=== PATIENT | female | born 1980 | race Caucasian/White ===

== ENCOUNTER → 2019-01-19 10:39 | Outpatient (CLI) | payer OTHER, SELFPAY ==
--- NOTE | 2019-01-19 10:41 | DI.RAD.S_ITS ---
PROCEDURE: XR LUMBAR SPINE 2-3V INDICATIONS: Low back pain TECHNIQUE: 3 views of the lumbar spine were acquired. COMPARISON: [facility], CT, KIDNEY/ URETER/BLADDER, 04/26/2016, 13:34. [facility], MR, L-SPINE WITHOUT CONTRAST, 07/17/2015, 9:25. [facility], CR, L-SPINE 2-3 VIEWS, 06/23/2015, 13:05. FINDINGS: Bones: 5 [id number] vertebrae are present. There is normal bony alignment. No vertebral body compression fractures. No suspicious bony lesions. The disc heights are well-preserved. Lower lumbar spine facet arthropathy is seen. Soft tissues: Overlying bowel gas pattern is normal. No suspicious soft tissue calcifications. Cholecystectomy clips are seen. A right-sided pelvic clip can also be seen. IMPRESSION: Lower lumbar spine facet arthropathy is seen. Cholecystectomy. Dictated by: Bao Gaspar M.D. on 01/19/2019 at 10:20 Approved by: Bao Gaspar M.D. on 01/19/2019 at 10:22
[2019-01-19 13:04] LABS: Hemoglobin A1C% w Est Avg Glu 5.2 % (4.0-6.0)
[2019-01-19 13:17] LABS: TSH w/ Reflex to FT4 2.45 uIU/mL (0.47-4.68)
[2019-01-19 13:46] LABS: Vitamin B12 254 pg/mL (239-931)
[2019-01-19 15:14] LABS: Vitamin D 25 Hydroxy (D3) 22.6 ng/mL (30.0-100.0)
== END ==
PROVIDERS: PCP Family Medicine; Visit Provider Registered Nurse
DX: G62.9 Polyneuropathy, unspecified (principal)
CPT/HCPCS: 36415; 72100; 82306; 82607; 83036; 84443

== ENCOUNTER → 2019-12-15 16:49 | Outpatient (CLI) | payer OTHER, SELFPAY ==
[2019-12-15 18:18] LABS: Influenza A - CEPHEID Flu A NEGATIVE (NEGATIVE); Influenza B - CEPHEID Flu B NEGATIVE (NEGATIVE)
== END ==
PROVIDERS: PCP Family Medicine; Visit Provider Physician Assistant
DX: R68.89 Other general symptoms and signs (principal)
CPT/HCPCS: 87502

== ENCOUNTER → 2021-02-13 07:48 | Outpatient (CLI) | payer OTHER, SELFPAY ==
[2021-02-13] MEDS: COVID-19 VACC #1, MRNA(MOD) 100 MCG/0.5 ML VIAL IM (07:54)
== END ==
PROVIDERS: PCP Family Medicine; Visit Provider Internal Medicine
DX: Z23 Encounter for immunization (principal)
CPT/HCPCS: 0011A; 91301

== ENCOUNTER → 2021-03-13 07:56 | Outpatient (CLI) | payer OTHER, SELFPAY ==
[2021-03-13] MEDS: COVID-19 VACC #2, MRNA(MOD) 100 MCG/0.5 ML VIAL IM (07:59)
== END ==
PROVIDERS: PCP Family Medicine; Visit Provider Internal Medicine
DX: Z23 Encounter for immunization (principal)
CPT/HCPCS: 0012A; 91301

== ENCOUNTER → 2021-08-22 09:09 | Outpatient (CLI) | payer OTHER, SELFPAY ==
[2021-08-22 09:56] LABS: COVID19 -Nasal RAPID Negative (Negative)
== END ==
PROVIDERS: PCP Family Medicine; Visit Provider Physician Assistant
DX: Z20.822 Contact with and (suspected) exposure to COVID-19 (principal)
CPT/HCPCS: 87635

== ENCOUNTER → 2023-01-22 08:33 | Outpatient (CLI) | payer BC, SELFPAY ==
[2023-01-22 09:48] LABS: Add Manual Diff / Slide Review NO; Basophils Absolute Auto 0 /uL (0-100); Basophils Percent Auto 0.5 % (0-2); Eosinophils Absolute Auto 300 /uL (0-450); Eosinophils Percent Auto 4.3 % (2-4); Hematocrit 41.6 % (36-46); Hemoglobin 13.5 g/dL (12.0-16.0); Lymphocytes Absolute Auto 1500 /uL (1100-4500); Mean Corpuscular HGB Conc 32.6 % (30-36); Mean Corpuscular Hemoglobin 28.7 PG (26-34); Mean Corpuscular Volume 88.2 fL (80-100); Monocytes Absolute Auto 500 /uL (0-900); Monocytes Percent Auto 7.8 % (3-14); Neutrophils Absolute Auto 4300 /uL (1500-7000); Neutrophils Percent Auto 64.4 % (50-75); Platelet Count 215 X10^3/uL (150-400); Red Blood Cell Count 4.71 X10^6/uL (4.0-5.2); Red Cell Distribution Width 14.9 % (11.6-14.8); White Blood Cell Count 6.6 X10^3/uL (4.5-11.0)
[2023-01-22 09:59] LABS: Alanine Aminotransferase 16 IU/L (<35); Albumin 4.4 g/dL (3.5-5.0); Albumin Globulin Ratio 1.4 (1.0-2.8); Alkaline Phosphatase 34 U/L (38-126); Aspartate Aminotransferase 16 IU/L (14-36); BUN Creatinine Ratio 20.3 (6-22); Bilirubin Total 0.6 mg/dL (0.2-1.3); Blood Urea Nitrogen 13 mg/dL (7-17); Calcium 9.3 mg/dL (8.4-10.2); Carbon Dioxide 27 mmol/L (22-32); Chloride 103 mmol/L (98-107); Cholesterol 130 mg/dL (140-199); Estimated Glomerular Filt Rate > 60 mL/min (>60); Globulin 3.1 g/dL (1.7-4.1); Glucose 86 mg/dL (70-100); HDL Cholesterol 34 mg/dL (40-60); HEMOLYSIS < 15 (0-50); LDL Cholesterol Calculated 80 mg/dL (<100); Potassium 3.8 mmol/L (3.4-5.1); Sodium 140 mmol/L (137-145); Total Protein 7.5 g/dL (6.3-8.2); Triglycerides 80 mg/dL (35-150)
[2023-01-22 10:06] LABS: Prealbumin 21.5 mg/dL (17.6-36.0)
[2023-01-22 10:33] LABS: Ferritin 45 ng/mL (6-137)
[2023-01-22 10:41] LABS: HEMOLYSIS 24 (0-50); Iron 102 ug/dL (37-170)
[2023-01-22 10:48] LABS: Vitamin B12 785 pg/mL (239-931)
[2023-01-22 10:49] LABS: Vitamin D 25 Hydroxy (D3) 92.6 ng/mL (30.0-100.0)
[2023-01-22 10:52] LABS: Percent Iron Saturation 29 % (15-50); Total Iron Binding Capacity 352 ug/dL (265-497); Transferrin 248 mg/dL (206-381)
[2023-01-22 11:13] LABS: TSH w/ Reflex to FT4 0.27 uIU/mL (0.47-4.68)
[2023-01-22 12:13] LABS: Free T4, Direct Thyroxine 0.85 ng/dL (0.78-2.19)
[2023-01-25 08:29] LABS: Calcium 9.9 mg/dL (8.7-10.2); Parathyroid Hormone, Intact 28 pg/mL (15-65)
[2023-01-25 10:34] LABS: Zinc,RBC 1178 ug/dL (878-1660)
[2023-01-27 08:36] LABS: Vitamin B6 43.4 ug/L (3.4-65.2)
[2023-01-29 15:49] LABS: Gamma-Tocopherol 0.9 mg/L (0.5-5.5); Vitamin A 38.8 ug/dL (20.1-62.0)
[2023-01-30 11:36] LABS: Vitamin B1 190.9 nmol/L (66.5-200.0)
== END ==
PROVIDERS: PCP Family Medicine; Referring Provider Family Medicine; Visit Provider Family Medicine
DX: Z90.3 Acquired absence of stomach [part of] (principal)
CPT/HCPCS: 36415; 80053; 80061; 82306; 82310; 82525; 82607; 82728; 83540; 83550; 83970; 84134; 84207; 84425; 84439; 84443; 84446; 84590; 84630; 85025

== ENCOUNTER → 2023-02-04 14:16 | Outpatient (CLI) | payer BC, SELFPAY ==
--- NOTE | 2023-02-04 14:18 | DI.MG.S_ITS ---
BILATERAL DIGITAL SCREENING MAMMOGRAM 3D/2D WITH CAD: 02/04/2023 CLINICAL: Baseline exam. Routine screening. No prior exams were available for comparison. Both breasts are heterogeneously dense, which may obscure small masses (category c / 51-75% glandular tissue). Current study was also evaluated with a Computer Aided Detection (CAD) system. No significant masses, calcifications, or other findings are seen in either breast. IMPRESSION: NEGATIVE There is no mammographic evidence of malignancy. A 1 year screening mammogram is recommended. Based on the Tyrer Cuzick model (a risk assessment model) the patient's lifetime risk is 7.5% and her 10 year risk is 0.9%. According to the ACR, ACS, and NCCN guidelines, an annual breast MRI exam along with mammogram is recommended if the patient's lifetime risk is 20% or greater. This exam was interpreted at Station ID: [id number]. NOTE: For mammograms, a report in lay terms will be sent to the patient. Approximately 15% of breast malignancies will not be visualized mammographically. In the management of a palpable breast mass, a negative mammogram must not discourage biopsy of a clinically suspicious lesion. Electronically Signed By: Savanna bill/tani:02/04/2023 14:53:23 letter sent: Normal Exam ACR BI-RADS Category 1: Negative [id number]
== END ==
PROVIDERS: PCP Family Medicine; Referring Provider Family Medicine; Visit Provider Family Medicine
DX: Z12.31 Encounter for screening mammogram for malignant neoplasm of breast (principal)
CPT/HCPCS: 77063; 77067

== ENCOUNTER → 2024-10-22 11:54 | Outpatient (CLI) | payer BC, SELFPAY ==
[2024-10-22 14:27] LABS: Vitamin D 25 Hydroxy (D3) 48.3 ng/mL (30.0-100.0)
== END ==
PROVIDERS: PCP Family Medicine; Referring Provider Family Medicine; Visit Provider Family Medicine
DX: F41.1 Generalized anxiety disorder (principal); F32.9 Major depressive disorder, single episode, unspecified; R79.89 Other specified abnormal findings of blood chemistry; L65.9 Nonscarring hair loss, unspecified; Z90.3 Acquired absence of stomach [part of]
CPT/HCPCS: 36415; 82306; 84443